=== PATIENT | female | born 1985 | race African-American/Black ===

== ENCOUNTER 2017-04-05 13:50 | Emergency (ER) | payer OTHER ==
[~2017-04-05 13:50] MED LIST: ACYCLOVIR400 MG; ACYCLOVIR400 MG PO; AMOXICILLIN PO; FIORICET W/CODE1 CAP PO; KETOPROFEN PO; NAPROXEN PO; NO MEDICATIONS; PRENATAL VITAMI1 TA3 PO; PRILOSEC
[2017-04-05] MEDS ORDERED: AMITRIPTYLINE H25 MG (14:03)
== END 2017-04-05 15:03 | disposition home or self-care (01) ==
LOC: SED 13:50
DX: L98.9 Disorder of the skin and subcutaneous tissue, unspecified (principal); Z90.711 Acquired absence of uterus with remaining cervical stump
CPT/HCPCS: 99282

== ENCOUNTER 2017-05-02 18:39 | Emergency (ER) | payer OTHER ==
[~2017-05-02] VITALS: Ht 157.5 cm; Wt 95.2 kg
[~2017-05-02 18:39] MED LIST changes: +AMITRIPTYLINE H25 MG
== END 2017-05-02 20:15 | disposition home or self-care (01) ==
LOC: SED 18:39
DX: J06.9 Acute upper respiratory infection, unspecified (principal); I88.9 Nonspecific lymphadenitis, unspecified; Z79.899 Other long term (current) drug therapy
CPT/HCPCS: 99283